=== PATIENT | female | born 1970 | race African-American/Black ===

== ENCOUNTER 2025-06-05 17:32 | Emergency (ER) | payer MEDICAID, OTHER ==
[~2025-06-05] VITALS: Ht 162.6 cm; Wt 52.3 kg
[2025-06-05 17:58] VITALS: O2SAT 98
[2025-06-05] MEDS ORDERED: SULF1TAB48 MT (18:12)
[2025-06-05] MEDS ORDERED: CEPH500C2 MT (18:12)
[2025-06-05] MEDS ORDERED: MUPI15CR11 TP (18:12)
[2025-06-05] MEDS: TETANUS, DIPHTHERIA, PERTUSSIS VAC/PF 0.5ML (>10YR OLD) IM ONE (18:26)
[2025-06-05 18:39] VITALS: BP 117/78; PULSE 90; RESP 18; TEMP 37.1; O2SAT 99
== END 2025-06-05 18:45 | disposition home or self-care (01) ==
LOC: ER 17:33
DX: L03.031 Cellulitis of right toe (principal); Z79.899 Other long term (current) drug therapy
CPT/HCPCS: 90471; 90715; 99283